=== PATIENT | male | born 1970 | race Caucasian/White ===

== ENCOUNTER 2017-01-11 00:06 | Day surgery (SDC) | payer OTHER ==
[~2017-01-11 00:06] MED LIST: CARV12.52 PO; CLOB15CR3 TOP; LISI40TA PO; METF-495 PO; OXYC5TAB72 PO; RES30 PO; RIVA20TA PO; SPIR1TAB2 PO
[2017-01-11] MEDS ORDERED: 0.9% Sodium Chloride 1,000 ML IV ONE (07:39)
== END 2017-01-11 23:59 | disposition home or self-care (01) ==
LOC: SOUO 00:06
PROVIDERS: ATTEND Internal Medicine Cardiovascular Disease
DX: I50.9 Heart failure, unspecified (principal)